=== PATIENT | female | born 1975 | race Caucasian/White ===

== ENCOUNTER 2016-02-12 04:40 | Emergency (ER) | payer OTHER, SELFPAY ==
[~2016-02-12 04:40] MED LIST: GABA300C3 PO; PERC5TAB6 PO; TYLE325T5 PO
[2016-02-12] MEDS ORDERED: KETOROLAC 30 MG/ML VIAL (J1885) As Ordered ONE (05:24)
[2016-02-12] MEDS ORDERED: ISOVUE-370 76% 100ML VIAL (Q9967) As Ordered ONE (05:27)
[2016-02-12 05:55] LABS: ANION GAP 9 MEQ/L (8-16); BLOOD UREA NITROGEN 10 MG/DL (7-18); CALCIUM LEVEL 8.6 MG/DL (8.5-10.1); CARBON DIOXIDE LEVEL 25 MEQ/L (21-32); CHLORIDE LEVEL 109 MEQ/L (98-107); CREATININE FOR GFR 0.84 MG/DL (0.55-1.02); GLOMERULAR FILTRATION RATE > 60.0 (>60); GLUCOSE, FASTING 116 MG/DL (70-105); POTASSIUM SERUM 3.7 MEQ/L (3.5-5.1); SODIUM LEVEL 143 MEQ/L (136-145)
--- NOTE | 2016-02-12 06:30 | REPUSA ---
HISTORY: Right facial swelling. COMPARISON: Not provided. TECHNIQUE: Multiple thin section helically-acquired axially-displayed and helically acquired coronall y displayed computed tomographic images of the face are obtained from the mandible through the fronta l sinuses, with images obtained at soft tissue and bone window. 2D reformatted images were performed. FINDINGS: Right perimandibular soft tissue edema and swelling. Right premaxillary soft tissue edema and stranding. Associated phlegmonous soft tissue changes. Right preseptal soft tissue edema. Normal bony mineralization. No fractures. Normal orbits. Normal, clear paranasal sinuses. Normal oral and nasal cavities. Normal infratemporal fossa and deep parapharyngeal spaces with normal muscles of mastication. Normal parotid and submandibular glands. IMPRESSION: Right facial paralysis with phlegmonous reaction. No drainable abscess formation. Right preseptal cellulitis. No post septal extension. Thank you for your kind referral of this patient
[2016-02-12] MEDS ORDERED: CLINDAMYCIN INJ 900MG/6ML VIAL As Ordered ONE (06:49)
[2016-02-12 06:57] LABS: BASO # 0.1 K/mm3 (0.0-0.2); EOS # 0.3 K/mm3 (0.0-0.50); EOS % 2.7 % (0.0-3.0); LARGE UNSTAINED CELL # 0.1 K/mm3 (0.0-0.4); LARGE UNSTAINED CELL % 1.1 % (0.0-4.0); LYMPH # 2.7 K/mm3 (1.5-4.5); LYMPH % 21.1 % (24.0-44.0); MEAN CORPUSCULAR HEMOGLOBIN 27.5 pg (27.0-33.0); MEAN CORPUSCULAR HGB CONC 31.8 g/dl (32.0-36.5); MEAN CORPUSCULAR VOLUME 86.5 fl (80.0-96.0); MONO # 0.6 K/mm3 (0.0-0.8); NEUTROPHILS # 8.3 K/mm3 (1.8-7.7); PLATELET COUNT, AUTOMATED 315 k/mm3 (150-450); RED CELL DISTRIBUTION WIDTH 14.9 % (11.5-14.5)
--- NOTE | 2016-02-12 07:56 | EDDOCDS ---
Physician Documentation [facility] Name: Amy Magallanes Age: 41 yrs Sex: Female : 1975 Arrival Date: 02/12/2016 Time: 04:40 Bed 17 Private MD: Disposition: 02/11 07:22 Critical Care: Critical care not applicable. pc Disposition: 02/12/16 07:26 Discharged to Home/Self Care. Impression: Cellulitis and acute lymphangitis of face, Cellulitis of right orbit - pre-septal. - Condition is Stable. - Discharge Instructions: Cellulitis, Periorbital Cellulitis. - Prescriptions for Percocet 5- 325 mg Oral Tablet - take 1 tablet by ORAL route every 6 hours As needed MDD: 4 tabs; 20 tablet. - Medication Reconciliation, Local Pharmacy Hours form. - Follow up: Emergency Department; When: at 7pm tonight for repeat antibiotics. - Problem is new. - Symptoms have improved. HPI: 05:10 This 41 yrs old Female presents to ER via Walkin/Carried/Asstd with pc complaints of Facial Swelling. 05:10 The history is obtained from the patient. She developed right facial swelling pc yesterday, in her right cheek , near the right nasal fold. She denies any trauma, denies acne or lesions. The swelling increased throughout the day and she started to have pain and swelling in her lymph nodes along the right mandible. This morning her right check is swollen to and below the right mandible. The only area of pain is in her right upper maxillary area. She denies any visual changes, dental pain, nasal congestion of pain. At their worst, the symptoms were moderate. In the emergency department, the symptoms are moderate. The patient has not experienced similar symptoms in the past. The patient has not recently seen a physician. Historical: - Allergies: PENICILLINS (Hives, Swelling); - Home Meds: 1. none - PMHx: none; - PSHx: Tubal ligation (June 21, 2013); Neck surgery (2015) Dr. Contreras; Carpal Tunnel Repair- Right; - The history from nurses notes was reviewed: and I agree with what is documented. - Social history: Smoking status: Patient uses tobacco products, current every day smoker. No barriers to communication noted, The patient speaks fluent Zambian, Speaks appropriately for age, Preferred Language: Zambian. - : The pt / caregiver states he / she is not on anticoagulants. Home medication list is obtained from the patient. - Hospitalizations: : No recent hospitalization is reported. - Exposure Risk Screening:: None identified. - Immunization history:: All immunizations up-to-date. - Family history: Not pertinent. - Social history:: the patient smokes cigarettes 1ppd the patient drinks alcohol. 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 pc Exam: 05:10 General Appearance: no acute distress, alert. pc 05:10 EENT: gross swelling of the right side of her face, from the right maxilla at the nasal fold, extending down towards the right mandible . There is minimal erythema. There is no nasal mucosal abnormalities. There are no dental abnormalities. There swollen tender lymph nodes along the right submandibular chain. The oropharynx is normal. 05:10 Neck: The exam reveals no acute abnormalities. ROM is normal and painless. No nuchal rigidity is noted.. 05:10 Respiratory: no respiratory distress, normal breath sounds. Vital Signs: 04:44 BP 126 / 70; Pulse 91; Resp 18; Temp 99.6(TE); Pulse Ox 100% on R/A; Weight 63.5 kg / lf1 139.99 lbs (R); Height 5 ft. 7 in. (170.18 cm) (R); Pain 8/10; 05:41 Pain 3/10; mike 06:40 BP 109 / 78; Pulse 82; Resp 18 S; Temp 97.7(O); Pulse Ox 99% on R/A; Pain 0/10; jp4 07:45 BP 107 / 70; Pulse 69; Resp 18; Temp 99.2(O); Pulse Ox 100% on R/A; Pain 2/10; ct3 04:44 Body Mass Index 21.93 (63.50 kg, 170.18 cm) lf1 MDM: 05:09 IV Saline Lock ordered. pc 05:09 -Blood Culture (Adults Only), peripheral from different site, or from device/port/PICC pc etc. if present ordered. 05:10 CBC with Diff Ordered. EDMS 05:10 MED Profile Ordered. EDMS 05:10 -Blood Culture Ordered. EDMS 05:17 Differential Diagnosis: facial cellulitis with reactive lymphadenopathy, r/o maxillary pc sinusitis with bony erosion. Plan: labs, imaging. 05:18 -Blood Culture (Adults Only), peripheral from different site, or from device/port/PICC ml3 etc. if present complete. 05:19 BLOOD CULTURES Ordered. EDMS 05:23 ketorolac 30 mg IVP once ordered. pc 05:24 CT Maxillofacial with contrast Ordered. EDMS 06:43 Clindamycin 900 mg IVPB once over 30 mins; dilute in 50mL of NS or D5W ordered. pc 06:43 MED Profile Reviewed. pc 07:22 CBC with Diff Reviewed. pc 07:22 CT Maxillofacial with contrast Reviewed. pc 07:22 Data reviewed: old medical records, vital signs, nurses notes, lab test results, all pc radiology studies and available results. Test interpretation: LAB - all labs as ordered have been reviewed, interpreted and considered in the overall management of the clinical presentation; interpreted by Radiologist and personally reviewed, Maxillo-Facial CT; right pre-septal cellulitis/facial cellulitis. The patient has been re-examined and re-evaluated. The patient's symptoms have markedly improved after treatment. Disposition: The historical points, examination findings, and any diagnostic results supporting the provided diagnosis, were discussed with the patient or legal guardian. The need for outpatient follow up with the provider listed on their discharge instructions was discussed. They were encouraged to return to [facility], or the nearest ED, if symptoms worsen/persist, or for any other questions/concerns. Administered Medications: 05:28 Drug: ketorolac 30 mg [ketorolac 30 mg/mL (1 mL) injection solution (1 mL)] Route: IVP; mike Site: left forearm; 05:41 Follow up: Pain 04/17 Adult mike 06:40 Drug: Clindamycin 900 mg [clindamycin 150 mg/mL injection solution] Route: IVPB; cf2 Infused Over: 30 mins; Site: left antecubital; Signatures: Dispatcher [employer] EDMS Chavo Diallo MD MD pc Lopresti, Mary-Elizabeth, Planning Management It Specialist Unit ml3 Marivel Garcia RN RN kr3 Tanya Yen RN RN lf1 Morelia Abbott RN, cas, Christina RN cf2 MTDD
--- NOTE | 2016-02-12 07:56 | EDDOCDS ---
Nurse's Notes [facility] Name: Amy Magallanes Age: 41 yrs Sex: Female : 1975 Arrival Date: 02/12/2016 Time: 04:40 Bed 17 Private MD: Diagnosis: Cellulitis and acute lymphangitis of face;Cellulitis of right [id number] Presentation: 02/11 04:44 Presenting complaint: Patient states: Pt states she woke up yesterday morning with lf1 minor swelling to right cheek, when she woke up this morning pt. reports that swelling has increased and spread up toward her eye and down into her neck. Denies dental pain, reports pain in cheek, neck and eye that is currently 8/10. Adult Sepsis Screening: The patient does not have new or worsening altered mentation. Patient's respiratory rate is less than 22. Systolic blood pressure is greater than 100. Patient has a qSOFA score of 0- Negative Sepsis Screen. Suicide/Homicide risk assessment- the patient denies having any suicidal and/or homicidal ideations and does not present with any other emotional, behavioral or mental health complaints. 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 Transition of care: patient was not received from another setting of care. 04:44 Acuity: MISSAEL Level 3 lf1 04:44 Method Of Arrival: Walkin/Carried/Asstd lf1 Triage Assessment: 04:51 General: Appears uncomfortable, Behavior is cooperative. Pain: Location: right eye, lf1 right cheek and right jaw Pain currently is 8 out of 10 on a pain scale. HIV screening NA for this visit. Neurological: Level of Consciousness is awake, alert, Oriented to person, place, time. EENT: Reports nasal congestion Denies difficulty swallowing. Cardiovascular: Chest pain is denied. Respiratory: Respiratory effort is even, unlabored, Denies shortness of breath. GI: Denies diarrhea, nausea, vomiting. : Denies burning with urination, urinary frequency. Derm: Swollen area noted on right eye, right cheek and right jaw. 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 none - PMHx: none; - PSHx: Tubal ligation (June 21, 2013); Neck surgery (2016) Dr. Contreras; Carpal Tunnel Repair- Right; - The history from nurses notes was reviewed: and I agree with what is documented. - Social history: Smoking status: Patient uses tobacco products, current every day smoker. No barriers to communication noted, The patient speaks fluent Honduran, Speaks appropriately for age, Preferred Language: Honduran. - : The pt / caregiver states he / she is not on anticoagulants. Home medication list is obtained from the patient. - Hospitalizations: : No recent hospitalization is reported. - Exposure Risk Screening:: None identified. - Immunization history:: All immunizations up-to-date. - Family history: Not pertinent. - Social history:: the patient smokes cigarettes 1ppd the patient drinks alcohol. Screenin:53 Screening information is obtained from the patient. Fall risk: No risks identified. lf1 Assistance ADL's: requires no assistance with activities of daily living. Abuse/DV Screen: The patient / caregiver reports he/she is: not in a situation that causes fear, pain or injury. Nutritional screening: No deficits noted. Advance Directives: Currently, there is no health care proxy. There is no active DNR order. home support is adequate. Assessment: 05:03 General: See Triage note. Pt complains of pressure to right side of face. . mike Neurological: No deficits noted. EENT: No deficits noted. Cardiovascular: No deficits noted. Respiratory: No deficits noted. GI: No deficits noted. Derm: Skin is pink, warm & dry. 06:00 Reassessment: Patient appears in no apparent distress at this time. Patient states mike feeling better. Neurological: No deficits noted. Cardiovascular: No deficits noted. Respiratory: No deficits noted. Derm: Skin is pink, warm & dry. 07:55 Reassessment: Patient states feeling better. Pain: Location: right cheek Pain currently kr3 is 3 out of 10 on a pain scale. Respiratory: Respiratory effort is even, unlabored. Derm: Swollen area noted on right cheek. Vital Signs: 04:44 BP 126 / 70; Pulse 91; Resp 18; Temp 99.6(TE); Pulse Ox 100% on R/A; Weight 63.5 kg lf1 (R); Height 5 ft. 7 in. (170.18 cm) (R); Pain 8/10; 05:41 Pain 3/10; mike 06:40 BP 109 / 78; Pulse 82; Resp 18 S; Temp 97.7(O); Pulse Ox 99% on R/A; Pain 0/10; jp4 07:45 BP 107 / 70; Pulse 69; Resp 18; Temp 99.2(O); Pulse Ox 100% on R/A; Pain 2/10; ct3 04:44 Body Mass Index 21.93 (63.50 kg, 170.18 cm) 1 Vitals: 04:44 Log In Time: February 12, 2016 at 04:41. 1 ED Course: 04:41 Patient visited by Tanya Oseguera. lja 04:41 Patient moved to Waiting lja 04:44 Patient moved to Triage 1 lf 04:48 Triage Initiated [facility] 04:55 Morelia Abbott RN is Primary Nurse. lf1 04:55 Patient moved to 17 [facility] 05:07 Chavo Diallo MD is Attending Physician. pc 05:07 Patient visited by Chavo Diallo MD. pc 05:28 BLOOD CULTURES Sent. mike 05:28 MED Profile Sent. mike 05:28 CBC with Diff Sent. mike 05:40 Patient visited by Morelia Abbott RN. mike 06:40 Patient visited by Elisa Paz RN. cf2 06:42 Patient visited by Pipe Serrano. jp4 07:03 Attending Physician role handed off by Chavo Diallo MD sd1 07:03 Mulu Desai MD is Attending Physician. sd1 07:05 CT Maxillofacial with contrast Returned. EDMS 07:09 Primary Nurse role handed off by Morelia Abbott RN mike 07:15 Patient visited by Paul Qiu PCA. jlf 07:29 Attending Physician role handed off by Mulu Desai MD pc 07:29 Chavo Diallo MD is Attending Physician. pc 07:46 Patient visited by Claudine Jernigan PCA. ct3 07:55 The patient / caregiver is instructed regarding the plan of care and ED course. Patient kr3 has correct armband on for positive identification. 07:55 Inserted saline lock: 20 gauge in left forearm. No procedures done that require kr3 assistance. Administered Medications: 05:28 Drug: ketorolac 30 mg [ketorolac 30 mg/mL (1 mL) injection solution (1 mL)] Route: IVP; mike Site: left forearm; 05:41 Follow up: Pain 04/17 Adult mike 06:40 Drug: Clindamycin 900 mg [clindamycin 150 mg/mL injection solution] Route: IVPB; cf2 Infused Over: 30 mins; Site: left antecubital; Order Results: Lab Order: CBC with Diff; SPEC'M 02/12/16 05:23 Test: WHITE BLOOD COUNT; Value: 12.0; Range: 4.0-10.0; Abnormal: Above high normal; Units: K/mm3; Status: F Test: RED BLOOD COUNT; Value: 4.63; Range: 4.00-5.40; Units: M/mm3; Status: F Test: HEMOGLOBIN; Value: 12.7; Range: 12.0-16.0; Units: g/dl; Status: F Test: HEMATOCRIT; Value: 40.1; Range: 36.0-47.0; Units: %; Status: F Test: MEAN CORPUSCULAR VOLUME; Value: 86.5; Range: 80.0-96.0; Units: fl; Status: F Test: MEAN CORPUSCULAR HEMOGLOBIN; Value: 27.5; Range: 27.0-33.0; Units: pg; Status: F Test: MEAN CORPUSCULAR HGB CONC; Value: 31.8; Range: 32.0-36.5; Abnormal: Below low normal; Units: g/dl; Status: F Test: RED CELL DISTRIBUTION WIDTH; Value: 14.9; Range: 11.5-14.5; Abnormal: Above high normal; Units: %; Status: F Test: PLATELET COUNT, AUTOMATED; Value: 315; Range: 150-450; Units: k/mm3; Status: F Test: NEUTROPHILS %; Value: 69.0; Range: 36.0-66.0; Abnormal: Above high normal; Units: %; Status: F Test: LYMPH %; Value: 21.1; Range: 24.0-44.0; Abnormal: Below low normal; Units: %; Status: F Test: MONO %; Value: 5.0; Range: 0.0-5.0; Units: %; Status: F Test: EOS %; Value: 2.7; Range: 0.0-3.0; Units: %; Status: F Test: BASO %; Value: 1.0; Range: 0.0-1.0; Units: %; Status: F Test: LARGE UNSTAINED CELL %; Value: 1.1; Range: 0.0-4.0; Units: %; Status: F Test: NEUTROPHILS #; Value: 8.3; Range: 1.8-7.7; Abnormal: Above high normal; Units: K/mm3; Status: F Test: LYMPH #; Value: 2.7; Range: 1.5-4.5; Units: K/mm3; Status: F Test: MONO #; Value: 0.6; Range: 0.0-0.8; Units: K/mm3; Status: F Test: EOS #; Value: 0.3; Range: 0.0-0.50; Units: K/mm3; Status: F Test: BASO #; Value: 0.1; Range: 0.0-0.2; Units: K/mm3; Status: F Test: LARGE UNSTAINED CELL #; Value: 0.1; Range: 0.0-0.4; Units: K/mm3; Status: F Lab Order: [facility] Profile; SPEC'M 02/12/16 05:23 Test: GLUCOSE, FASTING; Value: 116; Range: 70-105; Abnormal: Above high normal; Units: MG/DL; Status: F Test: BLOOD UREA NITROGEN; Value: 10; Range: 7-18; Units: MG/DL; Status: F Test: CREATININE FOR GFR; Value: 0.84; Range: 0.55-1.02; Units: MG/DL; Status: F Test: GLOMERULAR FILTRATION RATE; Value: > 60.0; Range: >60; Status: F Test: SODIUM LEVEL; Value: 143; Range: 136-145; Units: MEQ/L; Status: F Test: POTASSIUM SERUM; Value: 3.7; Range: 3.5-5.1; Units: MEQ/L; Status: F Test: CHLORIDE LEVEL; Value: 109; Range: 98-107; Abnormal: Above high normal; Units: MEQ/L; Status: F Test: CARBON DIOXIDE LEVEL; Value: 25; Range: 21-32; Units: MEQ/L; Status: F Test: ANION GAP; Value: 9; Range: 8-16; Units: MEQ/L; Status: F Test: CALCIUM LEVEL; Value: 8.6; Range: 8.5-10.1; Units: MG/DL; Status: F Test Note: ; Units are mL/min/1.73 m2 Chronic Kidney Disease Staging per NKF: Stage I & II GFR >=60 Normal to Mildly Decreased Stage III GFR 30-59 Moderately Decreased Stage IV GFR 15-29 Severely Decreased Stage V GFR <15 Very Little GFR Left ESRD GFR <15 on BUTCHER MEAT Radiology Order: CT Maxillofacial with contrast Test: CT Maxillofacial with contrast REASON FOR EXAMINATION: r/o abscess; ; HISTORY: Right facial swelling.; COMPARISON: Not provided.; TECHNIQUE: Multiple thin section helically-acquired axially-displayed and helically acquired coronall; y displayed computed tomographic images of the face are obtained from the mandible through the fronta; l sinuses, with images obtained at soft tissue and bone window. 2D reformatted images were performed.; ; FINDINGS:; Right perimandibular soft tissue edema and swelling.; Right premaxillary soft tissue edema and stranding.; Associated phlegmonous soft tissue changes.; Right preseptal soft tissue edema.; Normal bony mineralization. No fractures.; Normal orbits.; Normal, clear paranasal sinuses.; Normal oral and nasal cavities.; Normal infratemporal fossa and deep parapharyngeal spaces with normal muscles of mastication. Normal; parotid and submandibular glands.; IMPRESSION:; Right facial paralysis with phlegmonous reaction.; No drainable abscess formation.; Right preseptal cellulitis. No post septal extension.; Thank you for your kind referral of this patient; ; Outcome: 07:26 Discharge ordered by Provider. 07:55 Discharge Assessment: patient administered narcotics - no. The following High Risk kr3 Discharge criteria are identified: None. Discharged to home ambulatory. Condition: stable. Discharge instructions given to patient, Instructed on discharge instructions, follow up and referral plans. medication usage, no driving heavy equipment, no drinking with medication, Demonstrated understanding of instructions, medications, Pt was receptive of discharge instructions/ teaching. Prescriptions given X 1. CT Study completed. Property sent home with patient. 07:56 Patient left the ED. kr3 Signatures: Dispatcher [employer] EDMS Chavo Diallo MD MD pc Delaney-Rowland, Sarah, MD MD sd1 Morelia Abbott,RN RN mike Marivel Garcia RN RN kr3 Tanya Yen RN RN lf1 Delon, Claudine, TUMBLERS SUPERVISOR TUMBLERS SUPERVISOR ct3 Paul Qiu, TUMBLERS SUPERVISOR TUMBLERS SUPERVISOR jlf Zach, Pipe jp4 Andrew, Elisa Mueller,RN RN cf2 MTDD
--- NOTE | 2016-02-14 08:57 | EDDOCDS ---
Physician Documentation Name: Amy Magallanes Age: 41 yrs Sex: Female : 1975 Arrival Date: 02/12/2016 Time: 04:40 Bed 17 Private MD: Disposition: 02/11 07:22 Critical Care: Critical care not applicable. pc Disposition: 02/12/16 07:26 Discharged to Home/Self Care. Impression: Cellulitis and acute lymphangitis of face, Cellulitis of right orbit - pre-septal. - Condition is Stable. - Discharge Instructions: Cellulitis, Periorbital Cellulitis. - Prescriptions for Percocet 5- 325 mg Oral Tablet - take 1 tablet by ORAL route every 6 hours As needed MDD: 4 tabs; 20 tablet. - Medication Reconciliation, Local Pharmacy Hours form. - Follow up: Emergency Department; When: at 7pm tonight for repeat antibiotics. - Problem is new. - Symptoms have improved. HPI: 05:10 This 41 yrs old Female presents to ER via Walkin/Carried/Asstd with pc complaints of Facial Swelling. 05:10 The history is obtained from the patient. She developed right facial swelling pc yesterday, in her right cheek , near the right nasal fold. She denies any trauma, denies acne or lesions. The swelling increased throughout the day and she started to have pain and swelling in her lymph nodes along the right mandible. This morning her right check is swollen to and below the right mandible. The only area of pain is in her right upper maxillary area. She denies any visual changes, dental pain, nasal congestion of pain. At their worst, the symptoms were moderate. In the emergency department, the symptoms are moderate. The patient has not experienced similar symptoms in the past. The patient has not recently seen a physician. Historical: - Allergies: PENICILLINS (Hives, Swelling); - Home Meds: 1. none - PMHx: none; - PSHx: Tubal ligation (June 21, 2013); Neck surgery (2015) Dr. Contreras; Carpal Tunnel Repair- Right; - The history from nurses notes was reviewed: and I agree with what is documented. - Social history: Smoking status: Patient uses tobacco products, current every day smoker. No barriers to communication noted, The patient speaks fluent Cymraes, Speaks appropriately for age, Preferred Language: Cymraes. - : The pt / caregiver states he / she is not on anticoagulants. Home medication list is obtained from the patient. - Hospitalizations: : No recent hospitalization is reported. - Exposure Risk Screening:: None identified. - Immunization history:: All immunizations up-to-date. - Family history: Not pertinent. - Social history:: the patient smokes cigarettes 1ppd the patient drinks alcohol. 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 pc Exam: 05:10 General Appearance: no acute distress, alert. pc 05:10 EENT: gross swelling of the right side of her face, from the right maxilla at the nasal fold, extending down towards the right mandible . There is minimal erythema. There is no nasal mucosal abnormalities. There are no dental abnormalities. There swollen tender lymph nodes along the right submandibular chain. The oropharynx is normal. 05:10 Neck: The exam reveals no acute abnormalities. ROM is normal and painless. No nuchal rigidity is noted.. 05:10 Respiratory: no respiratory distress, normal breath sounds. Vital Signs: 04:44 BP 126 / 70; Pulse 91; Resp 18; Temp 99.6(TE); Pulse Ox 100% on R/A; Weight 63.5 kg / lf1 139.99 lbs (R); Height 5 ft. 7 in. (170.18 cm) (R); Pain 8/10; 05:41 Pain 3/10; mike 06:40 BP 109 / 78; Pulse 82; Resp 18 S; Temp 97.7(O); Pulse Ox 99% on R/A; Pain 0/10; jp4 07:45 BP 107 / 70; Pulse 69; Resp 18; Temp 99.2(O); Pulse Ox 100% on R/A; Pain 2/10; ct3 04:44 Body Mass Index 21.93 (63.50 kg, 170.18 cm) lf1 MDM: 05:09 IV Saline Lock ordered. pc 05:09 -Blood Culture (Adults Only), peripheral from different site, or from device/port/PICC pc etc. if present ordered. 05:10 CBC with Diff Ordered. EDMS 05:10 MED Profile Ordered. EDMS 05:10 -Blood Culture Ordered. EDMS 05:17 Differential Diagnosis: facial cellulitis with reactive lymphadenopathy, r/o maxillary pc sinusitis with bony erosion. Plan: labs, imaging. 05:18 -Blood Culture (Adults Only), peripheral from different site, or from device/port/PICC ml3 etc. if present complete. 05:19 BLOOD CULTURES Ordered. EDMS 05:23 ketorolac 30 mg IVP once ordered. pc 05:24 CT Maxillofacial with contrast Ordered. EDMS 06:43 Clindamycin 900 mg IVPB once over 30 mins; dilute in 50mL of NS or D5W ordered. pc 06:43 MED Profile Reviewed. pc 07:22 CBC with Diff Reviewed. pc 07:22 CT Maxillofacial with contrast Reviewed. pc 07:22 Data reviewed: old medical records, vital signs, nurses notes, lab test results, all pc radiology studies and available results. Test interpretation: LAB - all labs as ordered have been reviewed, interpreted and considered in the overall management of the clinical presentation; interpreted by Radiologist and personally reviewed, Maxillo-Facial CT; right pre-septal cellulitis/facial cellulitis. The patient has been re-examined and re-evaluated. The patient's symptoms have markedly improved after treatment. Disposition: The historical points, examination findings, and any diagnostic results supporting the provided diagnosis, were discussed with the patient or legal guardian. The need for outpatient follow up with the provider listed on their discharge instructions was discussed. They were encouraged to return to [facility], or the nearest ED, if symptoms worsen/persist, or for any other questions/concerns. 08:13 [facility] Payment Agreement was scanned into [employer] and attached to record. mm15 08:13 Financial registration complete. mm15 14:33 Radiology Report was scanned into [employer] and attached to record. gb Administered Medications: 05:28 Drug: ketorolac 30 mg [ketorolac 30 mg/mL (1 mL) injection solution (1 mL)] Route: IVP; mike Site: left forearm; 05:41 Follow up: Pain 04/17 Adult mike 06:40 Drug: Clindamycin 900 mg [clindamycin 150 mg/mL injection solution] Route: IVPB; cf2 Infused Over: 30 mins; Site: left antecubital; Signatures: Dispatcher [employer] EDMS Chavo Diallo MD MD pc Barnhardt, Gloria, Gigi Stewart, [employer] ml3 Marivel Garcia RN RN kr3 Tanya Yen RN RN lf1 Kiana Mallory mm15 Morelia Abbott RN, cas, Christina RN cf2 The chart was reviewed and I authenticate all verbal orders and agree with the evaluation and treatment provided.Attachments: 08:13 [facility] Payment Agreement mm15 Chart Complete MTDD
--- NOTE | 2016-02-14 08:58 | EDDOCDS ---
Physician Documentation [facility] Name: Aym Magallanes Age: 41 yrs Sex: Female : 1975 Arrival Date: 02/12/2016 Time: 04:40 Bed 17 Private MD: Disposition: 02/11 07:22 Critical Care: Critical care not applicable. pc Disposition: 02/12/16 07:26 Discharged to Home/Self Care. Impression: Cellulitis and acute lymphangitis of face, Cellulitis of right orbit - pre-septal. - Condition is Stable. - Discharge Instructions: Cellulitis, Periorbital Cellulitis. - Prescriptions for Percocet 5- 325 mg Oral Tablet - take 1 tablet by ORAL route every 6 hours As needed MDD: 4 tabs; 20 tablet. - Medication Reconciliation, Local Pharmacy Hours form. - Follow up: Emergency Department; When: at 7pm tonight for repeat antibiotics. - Problem is new. - Symptoms have improved. HPI: 05:10 This 41 yrs old Female presents to ER via Walkin/Carried/Asstd with pc complaints of Facial Swelling. 05:10 The history is obtained from the patient. She developed right facial swelling pc yesterday, in her right cheek , near the right nasal fold. She denies any trauma, denies acne or lesions. The swelling increased throughout the day and she started to have pain and swelling in her lymph nodes along the right mandible. This morning her right check is swollen to and below the right mandible. The only area of pain is in her right upper maxillary area. She denies any visual changes, dental pain, nasal congestion of pain. At their worst, the symptoms were moderate. In the emergency department, the symptoms are moderate. The patient has not experienced similar symptoms in the past. The patient has not recently seen a physician. Historical: - Allergies: PENICILLINS (Hives, Swelling); - Home Meds: 1. none - PMHx: none; - PSHx: Tubal ligation (June 21, 2013); Neck surgery (2015) Dr. Contreras; Carpal Tunnel Repair- Right; - The history from nurses notes was reviewed: and I agree with what is documented. - Social history: Smoking status: Patient uses tobacco products, current every day smoker. No barriers to communication noted, The patient speaks fluent Equ[place]inean, Speaks appropriately for age, Preferred Language: [place]an. - : The pt / caregiver states he / she is not on anticoagulants. Home medication list is obtained from the patient. - Hospitalizations: : No recent hospitalization is reported. - Exposure Risk Screening:: None identified. - Immunization history:: All immunizations up-to-date. - Family history: Not pertinent. - Social history:: the patient smokes cigarettes 1ppd the patient drinks alcohol. 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 pc Exam: 05:10 General Appearance: no acute distress, alert. pc 05:10 EENT: gross swelling of the right side of her face, from the right maxilla at the nasal fold, extending down towards the right mandible . There is minimal erythema. There is no nasal mucosal abnormalities. There are no dental abnormalities. There swollen tender lymph nodes along the right submandibular chain. The oropharynx is normal. 05:10 Neck: The exam reveals no acute abnormalities. ROM is normal and painless. No nuchal rigidity is noted.. 05:10 Respiratory: no respiratory distress, normal breath sounds. Vital Signs: 04:44 BP 126 / 70; Pulse 91; Resp 18; Temp 99.6(TE); Pulse Ox 100% on R/A; Weight 63.5 kg / lf1 139.99 lbs (R); Height 5 ft. 7 in. (170.18 cm) (R); Pain 8/10; 05:41 Pain 3/10; mike 06:40 BP 109 / 78; Pulse 82; Resp 18 S; Temp 97.7(O); Pulse Ox 99% on R/A; Pain 0/10; jp4 07:45 BP 107 / 70; Pulse 69; Resp 18; Temp 99.2(O); Pulse Ox 100% on R/A; Pain 2/10; ct3 04:44 Body Mass Index 21.93 (63.50 kg, 170.18 cm) lf1 MDM: 05:09 IV Saline Lock ordered. pc 05:09 -Blood Culture (Adults Only), peripheral from different site, or from device/port/PICC pc etc. if present ordered. 05:10 CBC with Diff Ordered. EDMS 05:10 MED Profile Ordered. EDMS 05:10 -Blood Culture Ordered. EDMS 05:17 Differential Diagnosis: facial cellulitis with reactive lymphadenopathy, r/o maxillary pc sinusitis with bony erosion. Plan: labs, imaging. 05:18 -Blood Culture (Adults Only), peripheral from different site, or from device/port/PICC ml3 etc. if present complete. 05:19 BLOOD CULTURES Ordered. EDMS 05:23 ketorolac 30 mg IVP once ordered. pc 05:24 CT Maxillofacial with contrast Ordered. EDMS 06:43 Clindamycin 900 mg IVPB once over 30 mins; dilute in 50mL of NS or D5W ordered. pc 06:43 MED Profile Reviewed. pc 07:22 CBC with Diff Reviewed. pc 07:22 CT Maxillofacial with contrast Reviewed. pc 07:22 Data reviewed: old medical records, vital signs, nurses notes, lab test results, all pc radiology studies and available results. Test interpretation: LAB - all labs as ordered have been reviewed, interpreted and considered in the overall management of the clinical presentation; interpreted by Radiologist and personally reviewed, Maxillo-Facial CT; right pre-septal cellulitis/facial cellulitis. The patient has been re-examined and re-evaluated. The patient's symptoms have markedly improved after treatment. Disposition: The historical points, examination findings, and any diagnostic results supporting the provided diagnosis, were discussed with the patient or legal guardian. The need for outpatient follow up with the provider listed on their discharge instructions was discussed. They were encouraged to return to [facility], or the nearest ED, if symptoms worsen/persist, or for any other questions/concerns. 08:13 [facility] Payment Agreement was scanned into [employer] and attached to record. mm15 08:13 Financial registration complete. mm15 14:33 Radiology Report was scanned into [employer] and attached to record. gb Administered Medications: 05:28 Drug: ketorolac 30 mg [ketorolac 30 mg/mL (1 mL) injection solution (1 mL)] Route: IVP; mike Site: left forearm; 05:41 Follow up: Pain 04/17 Adult mike 06:40 Drug: Clindamycin 900 mg [clindamycin 150 mg/mL injection solution] Route: IVPB; cf2 Infused Over: 30 mins; Site: left antecubital; Signatures: Dispatcher [employer] EDMS Chavo Diallo MD MD pc Barnhardt, Gloria, Gigi Stewart, Dynamo Tender Unit ml3 Marivel Garcia RN RN kr3 Tanya Yen RN RN lf1 Kiana Mallory mm15 Morelia Abbott RN, cas, Christina RN cf2 The chart was reviewed and I authenticate all verbal orders and agree with the evaluation and treatment provided.Attachments: 08:13 [facility] Payment Agreement mm15 Chart Complete MTDD
--- NOTE | 2016-02-14 08:58 | EDDOCDS ---
Nurse's Notes [facility] Name: Amy Magallanes Age: 41 yrs Sex: Female : 1975 Arrival Date: 02/12/2016 Time: 04:40 Bed 17 Private MD: Diagnosis: Cellulitis and acute lymphangitis of face;Cellulitis of right [id number] Presentation: 02/11 04:44 Presenting complaint: Patient states: Pt states she woke up yesterday morning with lf1 minor swelling to right cheek, when she woke up this morning pt. reports that swelling has increased and spread up toward her eye and down into her neck. Denies dental pain, reports pain in cheek, neck and eye that is currently 8/10. Adult Sepsis Screening: The patient does not have new or worsening altered mentation. Patient's respiratory rate is less than 22. Systolic blood pressure is greater than 100. Patient has a qSOFA score of 0- Negative Sepsis Screen. Suicide/Homicide risk assessment- the patient denies having any suicidal and/or homicidal ideations and does not present with any other emotional, behavioral or mental health complaints. 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 Transition of care: patient was not received from another setting of care. 04:44 Acuity: MISSAEL Level 3 lf1 04:44 Method Of Arrival: Walkin/Carried/Asstd lf1 Triage Assessment: 04:51 General: Appears uncomfortable, Behavior is cooperative. Pain: Location: right eye, lf1 right cheek and right jaw Pain currently is 8 out of 10 on a pain scale. HIV screening NA for this visit. Neurological: Level of Consciousness is awake, alert, Oriented to person, place, time. EENT: Reports nasal congestion Denies difficulty swallowing. Cardiovascular: Chest pain is denied. Respiratory: Respiratory effort is even, unlabored, Denies shortness of breath. GI: Denies diarrhea, nausea, vomiting. : Denies burning with urination, urinary frequency. Derm: Swollen area noted on right eye, right cheek and right jaw. 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 none - PMHx: none; - PSHx: Tubal ligation (June 21, 2013); Neck surgery (2016) Dr. Contreras; Carpal Tunnel Repair- Right; - The history from nurses notes was reviewed: and I agree with what is documented. - Social history: Smoking status: Patient uses tobacco products, current every day smoker. No barriers to communication noted, The patient speaks fluent Azerbaijani, Speaks appropriately for age, Preferred Language: Azerbaijani. - : The pt / caregiver states he / she is not on anticoagulants. Home medication list is obtained from the patient. - Hospitalizations: : No recent hospitalization is reported. - Exposure Risk Screening:: None identified. - Immunization history:: All immunizations up-to-date. - Family history: Not pertinent. - Social history:: the patient smokes cigarettes 1ppd the patient drinks alcohol. Screenin:53 Screening information is obtained from the patient. Fall risk: No risks identified. lf1 Assistance ADL's: requires no assistance with activities of daily living. Abuse/DV Screen: The patient / caregiver reports he/she is: not in a situation that causes fear, pain or injury. Nutritional screening: No deficits noted. Advance Directives: Currently, there is no health care proxy. There is no active DNR order. home support is adequate. Assessment: 05:03 General: See Triage note. Pt complains of pressure to right side of face. . mike Neurological: No deficits noted. EENT: No deficits noted. Cardiovascular: No deficits noted. Respiratory: No deficits noted. GI: No deficits noted. Derm: Skin is pink, warm & dry. 06:00 Reassessment: Patient appears in no apparent distress at this time. Patient states mike feeling better. Neurological: No deficits noted. Cardiovascular: No deficits noted. Respiratory: No deficits noted. Derm: Skin is pink, warm & dry. 07:55 Reassessment: Patient states feeling better. Pain: Location: right cheek Pain currently kr3 is 3 out of 10 on a pain scale. Respiratory: Respiratory effort is even, unlabored. Derm: Swollen area noted on right cheek. Vital Signs: 04:44 BP 126 / 70; Pulse 91; Resp 18; Temp 99.6(TE); Pulse Ox 100% on R/A; Weight 63.5 kg lf1 (R); Height 5 ft. 7 in. (170.18 cm) (R); Pain 8/10; 05:41 Pain 3/10; mike 06:40 BP 109 / 78; Pulse 82; Resp 18 S; Temp 97.7(O); Pulse Ox 99% on R/A; Pain 0/10; jp4 07:45 BP 107 / 70; Pulse 69; Resp 18; Temp 99.2(O); Pulse Ox 100% on R/A; Pain 2/10; ct3 04:44 Body Mass Index 21.93 (63.50 kg, 170.18 cm) 1 Vitals: 04:44 Log In Time: February 12, 2016 at 04:41. 1 ED Course: 04:41 Patient visited by Tanya Oseguera. lja 04:41 Patient moved to Waiting lja 04:44 Patient moved to Triage 1 lf 04:48 Triage Initiated [facility] 04:55 Morelia Abbott RN is Primary Nurse. lf1 04:55 Patient moved to 17 [facility] 05:07 Chavo Diallo MD is Attending Physician. pc 05:07 Patient visited by Chavo Diallo MD. pc 05:28 BLOOD CULTURES Sent. mike 05:28 MED Profile Sent. mike 05:28 CBC with Diff Sent. mike 05:40 Patient visited by Morelia Abbott RN. mike 06:40 Patient visited by Elisa Paz RN. cf2 06:42 Patient visited by Pipe Serrano. jp4 07:03 Attending Physician role handed off by Chavo Diallo MD sd1 07:03 Mulu Desai MD is Attending Physician. sd1 07:05 CT Maxillofacial with contrast Returned. EDMS 07:09 Primary Nurse role handed off by Morelia Abbott RN mike 07:15 Patient visited by Paul Qiu PCA. jlf 07:29 Attending Physician role handed off by Mulu Desai MD pc 07:29 Chavo Diallo MD is Attending Physician. pc 07:46 Patient visited by Claudine Jernigan PCA. ct3 07:55 The patient / caregiver is instructed regarding the plan of care and ED course. Patient kr3 has correct armband on for positive identification. 07:55 Inserted saline lock: 20 gauge in left forearm. No procedures done that require kr3 assistance. 08:13 [facility] Payment Agreement was scanned into [employer]Pad and attached to record. mm15 14:33 Radiology Report was scanned into TimePad and attached to record. gb Administered Medications: 05:28 Drug: ketorolac 30 mg [ketorolac 30 mg/mL (1 mL) injection solution (1 mL)] Route: IVP; mike Site: left forearm; 05:41 Follow up: Pain 04/17 Adult mike 06:40 Drug: Clindamycin 900 mg [clindamycin 150 mg/mL injection solution] Route: IVPB; cf2 Infused Over: 30 mins; Site: left antecubital; Order Results: Lab Order: CBC with Diff; SPEC'M 02/12/16 05:23 Test: WHITE BLOOD COUNT; Value: 12.0; Range: 4.0-10.0; Abnormal: Above high normal; Units: K/mm3; Status: F Test: RED BLOOD COUNT; Value: 4.63; Range: 4.00-5.40; Units: M/mm3; Status: F Test: HEMOGLOBIN; Value: 12.7; Range: 12.0-16.0; Units: g/dl; Status: F Test: HEMATOCRIT; Value: 40.1; Range: 36.0-47.0; Units: %; Status: F Test: MEAN CORPUSCULAR VOLUME; Value: 86.5; Range: 80.0-96.0; Units: fl; Status: F Test: MEAN CORPUSCULAR HEMOGLOBIN; Value: 27.5; Range: 27.0-33.0; Units: pg; Status: F Test: MEAN CORPUSCULAR HGB CONC; Value: 31.8; Range: 32.0-36.5; Abnormal: Below low normal; Units: g/dl; Status: F Test: RED CELL DISTRIBUTION WIDTH; Value: 14.9; Range: 11.5-14.5; Abnormal: Above high normal; Units: %; Status: F Test: PLATELET COUNT, AUTOMATED; Value: 315; Range: 150-450; Units: k/mm3; Status: F Test: NEUTROPHILS %; Value: 69.0; Range: 36.0-66.0; Abnormal: Above high normal; Units: %; Status: F Test: LYMPH %; Value: 21.1; Range: 24.0-44.0; Abnormal: Below low normal; Units: %; Status: F Test: MONO %; Value: 5.0; Range: 0.0-5.0; Units: %; Status: F Test: EOS %; Value: 2.7; Range: 0.0-3.0; Units: %; Status: F Test: BASO %; Value: 1.0; Range: 0.0-1.0; Units: %; Status: F Test: LARGE UNSTAINED CELL %; Value: 1.1; Range: 0.0-4.0; Units: %; Status: F Test: NEUTROPHILS #; Value: 8.3; Range: 1.8-7.7; Abnormal: Above high normal; Units: K/mm3; Status: F Test: LYMPH #; Value: 2.7; Range: 1.5-4.5; Units: K/mm3; Status: F Test: MONO #; Value: 0.6; Range: 0.0-0.8; Units: K/mm3; Status: F Test: EOS #; Value: 0.3; Range: 0.0-0.50; Units: K/mm3; Status: F Test: BASO #; Value: 0.1; Range: 0.0-0.2; Units: K/mm3; Status: F Test: LARGE UNSTAINED CELL #; Value: 0.1; Range: 0.0-0.4; Units: K/mm3; Status: F Lab Order: MED Profile; SPEC'M 02/12/16 05:23 Test: GLUCOSE, FASTING; Value: 116; Range: 70-105; Abnormal: Above high normal; Units: MG/DL; Status: F Test: BLOOD UREA NITROGEN; Value: 10; Range: 7-18; Units: MG/DL; Status: F Test: CREATININE FOR GFR; Value: 0.84; Range: 0.55-1.02; Units: MG/DL; Status: F Test: GLOMERULAR FILTRATION RATE; Value: > 60.0; Range: >60; Status: F Test: SODIUM LEVEL; Value: 143; Range: 136-145; Units: MEQ/L; Status: F Test: POTASSIUM SERUM; Value: 3.7; Range: 3.5-5.1; Units: MEQ/L; Status: F Test: CHLORIDE LEVEL; Value: 109; Range: 98-107; Abnormal: Above high normal; Units: MEQ/L; Status: F Test: CARBON DIOXIDE LEVEL; Value: 25; Range: 21-32; Units: MEQ/L; Status: F Test: ANION GAP; Value: 9; Range: 8-16; Units: MEQ/L; Status: F Test: CALCIUM LEVEL; Value: 8.6; Range: 8.5-10.1; Units: MG/DL; Status: F Test Note: ; Units are mL/min/1.73 m2 Chronic Kidney Disease Staging per NKF: Stage I & II GFR >=60 Normal to Mildly Decreased Stage III GFR 30-59 Moderately Decreased Stage IV GFR 15-29 Severely Decreased Stage V GFR <15 Very Little GFR Left ESRD GFR <15 on PATTERNATOR Lab Order: -Blood Culture; SPEC'M 02/12/16 05:23 Test: BLOOD CULTURE; Value: No growth after 24 hours . All specimens observed; Status: F Test: BLOOD CULTURE; Value: for 5 days. Results final at that time.; Status: F Test: BLOOD CULTURE; Value: No Growth after 48 hours. All Specimens observed; Status: F Test: BLOOD CULTURE; Value: for 7 days. Results final at that time.; Status: F Lab Order: BLOOD CULTURES; SPEC'M 02/12/16 05:23 Test: BLOOD CULTURE; Value: No growth after 24 hours . All specimens observed; Status: F Test: BLOOD CULTURE; Value: for 5 days. Results final at that time.; Status: F Test: BLOOD CULTURE; Value: No Growth after 48 hours. All Specimens observed; Status: F Test: BLOOD CULTURE; Value: for 7 days. Results final at that time.; Status: F Radiology Order: CT Maxillofacial with contrast Test: CT Maxillofacial with contrast REASON FOR EXAMINATION: r/o abscess; ; HISTORY: Right facial swelling.; COMPARISON: Not provided.; TECHNIQUE: Multiple thin section helically-acquired axially-displayed and helically acquired coronall; y displayed computed tomographic images of the face are obtained from the mandible through the fronta; l sinuses, with images obtained at soft tissue and bone window. 2D reformatted images were performed.; ; FINDINGS:; Right perimandibular soft tissue edema and swelling.; Right premaxillary soft tissue edema and stranding.; Associated phlegmonous soft tissue changes.; Right preseptal soft tissue edema.; Normal bony mineralization. No fractures.; Normal orbits.; Normal, clear paranasal sinuses.; Normal oral and nasal cavities.; Normal infratemporal fossa and deep parapharyngeal spaces with normal muscles of mastication. Normal; parotid and submandibular glands.; IMPRESSION:; Right facial paralysis with phlegmonous reaction.; No drainable abscess formation.; Right preseptal cellulitis. No post septal extension.; Thank you for your kind referral of this patient; ; Outcome: 07:26 Discharge ordered by Provider. 07:55 Discharge Assessment: patient administered narcotics - no. The following High Risk kr3 Discharge criteria are identified: None. Discharged to home ambulatory. Condition: stable. Discharge instructions given to patient, Instructed on discharge instructions, follow up and referral plans. medication usage, no driving heavy equipment, no drinking with medication, Demonstrated understanding of instructions, medications, Pt was receptive of discharge instructions/ teaching. Prescriptions given X 1. CT Study completed. Property sent home with patient. 07:56 Patient left the ED. kr3 Signatures: Dispatcher [employer] EDMS Chavo Diallo MD MD pc Delaney-Rowland, Sarah, MD MD sd1 Morelia Abbott,RN RN Nora De Leon, Marivel Craig RN RN kr3 Tanya Yen RN RN lf1 Claudine Jernigan, EMBLEM DRAWER IN EMBLEM DRAWER IN ct3 Kiana Mallory mm15 Paul Qiu, EMBLEM DRAWER IN EMBLEM DRAWER IN jlf Piep Serrano jp4 Tanya Oseguera Christina,LON RN cf2 Chart Complete MTDD
== END 2016-02-12 07:56 | disposition home or self-care (01) ==
LOC: M ED 04:40
DX: L03.211 Cellulitis of face (principal); Z88.0 Allergy status to penicillin; F17.210 Nicotine dependence, cigarettes, uncomplicated
CPT/HCPCS: 36415; 70487; 80048; 85025; 87040; 99284; J1885; Q9967

== ENCOUNTER 2016-02-12 18:02 | Emergency (ER) | payer SELFPAY ==
[2016-02-12] MEDS ORDERED: CLINDAMYCIN INJ 900MG/6ML VIAL As Ordered ONE (19:54)
--- NOTE | 2016-02-12 20:37 | EDDOCDS ---
Nurse's Notes [facility] Name: Amy Magallanes Age: 41 yrs Sex: Female : 1975 Arrival Date: 02/12/2016 Time: 18:02 Bed I2 / M2 Private MD: NO PRIMARY PHYSICIAN, . Diagnosis: Cellulitis of face-right cheek Presentation: 02/11 18:05 Presenting complaint: Patient states: here for recheck with IV antibiotics. states was ead seen here this morning for right side facial swelling and given IV antibiotics. Was instructed to come back this afternoon. Adult Sepsis Screening: The patient does not have new or worsening altered mentation. Patient's respiratory rate is less than 22. Systolic blood pressure is greater than 100. Patient has a qSOFA score of 0- Negative Sepsis Screen. Suicide/Homicide risk assessment- the patient denies having any suicidal and/or homicidal ideations and does not present with any other emotional, behavioral or mental health complaints. 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 Transition of care: patient was not received from another setting of care. 18:05 Acuity: MISSAEL Level 3 ead 18:05 Method Of Arrival: Walkin/Carried/Asstd ead Triage Assessment: 18:07 General: Appears in no apparent distress, comfortable, Behavior is appropriate for age, ead cooperative. Pain: Location: right cheek, mouth and right jaw Pain currently is 4 out of 10 on a pain scale. HIV screening NA for this visit Offered previously. Neurological: No deficits noted. EENT: Reports pain in right cheek and right jaw. Respiratory: Airway is patent Respiratory effort is even, unlabored. Derm: Skin is pink, warm & dry. 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 Percocet 5-325 mg Oral tab every 4-6 hours - PMHx: none; - PSHx: Tubal ligation (June 21, 2013); Neck surgery (2015) Dr. Contreras; Carpal Tunnel Repair- Right; - Social history: Smoking status: Patient uses tobacco products, current some day smoker. No barriers to communication noted, The patient speaks fluent Algerian, Speaks appropriately for age. - Family history: Not pertinent. - : The pt / caregiver states he / she is not on anticoagulants. Home medication list is obtained from the patient. - Exposure Risk Screening:: None identified. Screenin:32 Screening information is obtained from the patient. Fall risk: No risks identified. ka4 Assistance ADL's: requires no assistance with activities of daily living. Abuse/DV Screen: The patient / caregiver reports he/she is: not in a situation that causes fear, pain or injury. Nutritional screening: No deficits noted. Advance Directives: There is no active DNR order. home support is adequate. Assessment: 20:01 Adult Sepsis Screening: The patient does not have new or worsening altered mentation. dsf Patient's respiratory rate is less than 22. Systolic blood pressure is greater than 100. Patient has a qSOFA score of 0- Negative Sepsis Screen. General: Appears in no apparent distress, Behavior is appropriate for age, cooperative. Pain: Location: right jaw and right cheek Pain currently is 5 out of 10 on a pain scale. Quality of pain is described as tender. Neurological: Level of Consciousness is awake, alert. Cardiovascular: Capillary refill < 3 seconds. Respiratory: Airway is patent Respiratory effort is even, unlabored, Respiratory pattern is symmetrical. Derm: Skin is pink, warm & dry. redness and swelling noted to right jaw right cheek and under right eye. pt states the swelling is better. 20:32 General: Appears in no apparent distress, comfortable, Behavior is appropriate for age, ka4 cooperative, pleasant. Pain: Denies pain. Neurological: Level of Consciousness is awake, alert, obeys commands, Oriented to person, place, time, Warp Knitter are equal bilaterally Moves all extremities. Gait is steady, Speech is normal, Facial symmetry: tongue is midline, right side of face swollen, slightly red. Respiratory: Airway is patent Respiratory effort is even, unlabored, Respiratory pattern is regular, symmetrical. Vital Signs: 18:03 BP 127 / 57; Pulse 93; Resp 16; Temp 98(O); Pulse Ox 100% ; Weight 63.5 kg; Height 5 cmb ft. 7 in. (170.18 cm); Pain 4/10; 20:32 BP 113 / 74 LA Sitting (auto/reg); Pulse 84 MON; Resp 16; Temp 100.5(TE); Pulse Ox 98% ka4 on R/A; Pain 0/10; 18:03 Body Mass Index 21.93 (63.50 kg, 170.18 cm) cmb Vitals: 18:03 Log In Time: February 12, 2016 at 18:02. cmb ED Course: 18:03 Patient visited by Mary Beth Liang. cmb 18:03 Jose A Joseph MD is Private Physician. cmb 18:03 NO PRIMARY PHYSICIAN, . is Private Physician. cmb 18:03 Patient moved to Waiting cmb 18:04 Patient moved to Pre RCE cmb 18:06 Triage Initiated ead 19:05 Patient visited by Yuly Jaquez RN. ead 19:05 Patient moved to Triage 2 jmb 19:27 Jayant Joseph PA is PHCP. mo1 19:27 Jase Cole DO is Attending Physician. mo1 19:32 Patient visited by Jayant Joseph PA. mo1 19:44 Patient moved to I2 / M2 ttb 20:04 Patient visited by Conchis Aiken RN. dsf 20:15 [facility] Payment Agreement was scanned into [employer] and attached to record. gjb 20:32 The patient / caregiver is instructed regarding the plan of care and ED course. ka4 20:32 Maintain field IV. Dressing intact. Good blood return noted. Site clean & dry. IV is ka4 patent, is intact, is free of redness or swelling. Flushed left antecubital. No procedures done that require assistance. Administered Medications: 20:01 Drug: Clindamycin 900 mg Route: IVPB; Infused Over: 30 mins; Site: left forearm; dsf Order Results: There are currently no results for this order. Outcome: 20:25 Discharge ordered by Provider. mo1 20:32 Discharge Assessment: Patient awake, alert and oriented x 3. No cognitive and/or ka4 functional deficits noted. Patient verbalized understanding of disposition instructions. patient administered narcotics - no. The following High Risk Discharge criteria are identified: None. Discharged to home ambulatory. Condition: good Condition: stable. Discharge instructions given to patient, Instructed on discharge instructions, follow up and referral plans. Use of warm compresses to the affected area, Demonstrated understanding of instructions, Pt was receptive of discharge instructions/ teaching. No special radiology studies were completed. Property :Personal belongings accompany Pt. 20:35 Patient left the ED. ka4 Signatures: Conchis Aiken RN RN Mary Beth Juarez cmb Charlotte Jackson, RN RN ttb Jayant Joseph PA PA mo1 Ron Stock,RN RN Yuly Hoffman,RN RN Aruna Domingo,SASH FINISHER SASH FINISHER Marjorie Colunga MTDD
--- NOTE | 2016-02-12 20:37 | EDDOCDS ---
Physician Documentation [facility] Name: Amy Magallanes Age: 41 yrs Sex: Female : 1975 Arrival Date: 02/12/2016 Time: 18:02 Bed I2 / M2 Private MD: NO PRIMARY PHYSICIAN, . Disposition: 02/12/16 20:25 Discharged to Home/Self Care. Impression: Cellulitis of face - right cheek. - Condition is Stable. - Discharge Instructions: Cellulitis. - Medication Reconciliation, Local Pharmacy Hours form. - Follow up: Emergency Department; When: Tomorrow; Reason: Recheck today's complaints, Continuance of care. - Problem is new. - Symptoms are unchanged. - Notes: return tomorrow for re evaluation of cellulitis, if you have changes in vision, fever/chills, dramatic change in redness or swelling return to ER sooner Historical: - Allergies: PENICILLINS (Hives, Swelling); - Home Meds: 1. Percocet 5-325 mg Oral tab every 4-6 hours - PMHx: none; - PSHx: Tubal ligation (June 21, 2013); Neck surgery (2015) Dr. Contreras; Carpal Tunnel Repair- Right; - Social history: Smoking status: Patient uses tobacco products, current some day smoker. No barriers to communication noted, The patient speaks fluent Vietnamese, Speaks appropriately for age. - Family history: Not pertinent. - : The pt / caregiver states he / she is not on anticoagulants. Home medication list is obtained from the patient. - Exposure Risk Screening:: None identified. 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 7 in. (170.18 cm); Pain 4/10; 20:32 BP 113 / 74 LA Sitting (auto/reg); Pulse 84 MON; Resp 16; Temp 100.5(TE); Pulse Ox 98% ka4 on R/A; Pain 0/10; 18:03 Body Mass Index 21.93 (63.50 kg, 170.18 cm) cmb MDM: 19:43 Clindamycin 900 mg IVPB once over 30 mins; dilute in 50mL of NS or D5W ordered. mo1 19:51 Financial registration complete. dm19 20:15 [facility] Payment Agreement was scanned into [employer] and attached to record. jeny Administered Medications: 20:01 Drug: Clindamycin 900 mg Route: IVPB; Infused Over: 30 mins; Site: left forearm; dsf Signatures: Jayant Joseph PA PA mo1 Yuly Jaquez RN RN ead Anderson, Kodie, LPN LPN ka4 Beck, Gabriela gjb Sowmya Sheikh dm19 Conchis Aiken RN dsf The chart was reviewed and I authenticate all verbal orders and agree with the evaluation and treatment provided.Attachments: 20:15 [facility] Payment Agreement jeny MTDD
--- NOTE | 2016-02-14 21:36 | EDDOCDS ---
Physician Documentation [facility] Name: Amy Maglalanes Age: 41 yrs Sex: Female : 1975 Arrival Date: 02/12/2016 Time: 18:02 Bed I2 / M2 Private MD: NO PRIMARY PHYSICIAN, . Disposition: 02/12/16 20:25 Discharged to Home/Self Care. Impression: Cellulitis of face - right cheek. - Condition is Stable. - Discharge Instructions: Cellulitis. - Medication Reconciliation, Local Pharmacy Hours form. - Follow up: Emergency Department; When: Tomorrow; Reason: Recheck today's complaints, Continuance of care. - Problem is new. - Symptoms are unchanged. - Notes: return tomorrow for re evaluation of cellulitis, if you have changes in vision, fever/chills, dramatic change in redness or swelling return to ER sooner Historical: - Allergies: PENICILLINS (Hives, Swelling); - Home Meds: 1. Percocet 5-325 mg Oral tab every 4-6 hours - PMHx: none; - PSHx: Tubal ligation (June 21, 2013); Neck surgery (2015) Dr. Contreras; Carpal Tunnel Repair- Right; - Social history: Smoking status: Patient uses tobacco products, current some day smoker. No barriers to communication noted, The patient speaks fluent Qatari, Speaks appropriately for age. - Family history: Not pertinent. - : The pt / caregiver states he / she is not on anticoagulants. Home medication list is obtained from the patient. - Exposure Risk Screening:: None identified. 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 7 in. (170.18 cm); Pain 4/10; 20:32 BP 113 / 74 LA Sitting (auto/reg); Pulse 84 MON; Resp 16; Temp 100.5(TE); Pulse Ox 98% ka4 on R/A; Pain 0/10; 18:03 Body Mass Index 21.93 (63.50 kg, 170.18 cm) cmb MDM: 19:43 Clindamycin 900 mg IVPB once over 30 mins; dilute in 50mL of NS or D5W ordered. mo1 19:51 Financial registration complete. dm19 20:15 [facility] Payment Agreement was scanned into T[employer] and attached to record. jeny 02/13 08:22 T-Sheet-- Draft Copy was scanned into TixAlert and attached to record. gb Administered Medications: 02/11 20:01 Drug: Clindamycin 900 mg Route: IVPB; Infused Over: 30 mins; Site: left forearm; dsf Signatures: Nora Barone, Reg Reg gb Jayant Joseph PA PA mo1 Yuly Jaquez,RN RN Aruna Domingo LPN LPN ka4 Marjorie Prieto gjb Sowmya Sheikh dm19 Conchis Aiken RN dsf The chart was reviewed and I authenticate all verbal orders and agree with the evaluation and treatment provided.Attachments: 20:15 [facility] Payment Agreement b 02/13 08:22 T-Sheet-- Draft Copy gb Chart Complete MTDD
--- NOTE | 2016-02-14 21:36 | EDDOCDS ---
Physician Documentation [facility] Name: Amy Magallanes Age: 41 yrs Sex: Female : 1975 Arrival Date: 02/12/2016 Time: 18:02 Bed I2 / M2 Private MD: NO PRIMARY PHYSICIAN, . Disposition: 02/12/16 20:25 Discharged to Home/Self Care. Impression: Cellulitis of face - right cheek. - Condition is Stable. - Discharge Instructions: Cellulitis. - Medication Reconciliation, Local Pharmacy Hours form. - Follow up: Emergency Department; When: Tomorrow; Reason: Recheck today's complaints, Continuance of care. - Problem is new. - Symptoms are unchanged. - Notes: return tomorrow for re evaluation of cellulitis, if you have changes in vision, fever/chills, dramatic change in redness or swelling return to ER sooner Historical: - Allergies: PENICILLINS (Hives, Swelling); - Home Meds: 1. Percocet 5-325 mg Oral tab every 4-6 hours - PMHx: none; - PSHx: Tubal ligation (June 21, 2013); Neck surgery (2015) Dr. Contreras; Carpal Tunnel Repair- Right; - Social history: Smoking status: Patient uses tobacco products, current some day smoker. No barriers to communication noted, The patient speaks fluent Ghanaian, Speaks appropriately for age. - Family history: Not pertinent. - : The pt / caregiver states he / she is not on anticoagulants. Home medication list is obtained from the patient. - Exposure Risk Screening:: None identified. 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 7 in. (170.18 cm); Pain 4/10; 20:32 BP 113 / 74 LA Sitting (auto/reg); Pulse 84 MON; Resp 16; Temp 100.5(TE); Pulse Ox 98% ka4 on R/A; Pain 0/10; 18:03 Body Mass Index 21.93 (63.50 kg, 170.18 cm) cmb MDM: 19:43 Clindamycin 900 mg IVPB once over 30 mins; dilute in 50mL of NS or D5W ordered. mo1 19:51 Financial registration complete. dm19 20:15 [facility] Payment Agreement was scanned into [employer] and attached to record. jeny 02/13 08:22 T-Sheet-- Draft Copy was scanned into [employer] and attached to record. gb Administered Medications: 02/11 20:01 Drug: Clindamycin 900 mg Route: IVPB; Infused Over: 30 mins; Site: left forearm; dsf Signatures: Nora Barone, Reg Reg gb Jayant Joseph PA PA mo1 Yuly Jaquez,RN RN Aruna Domingo LPN LPN ka4 Marjorie Prieto gjb Sowmya Sheikh dm19 Conchis Aiken RN dsf The chart was reviewed and I authenticate all verbal orders and agree with the evaluation and treatment provided.Attachments: 20:15 [facility] Payment Agreement b 02/13 08:22 T-Sheet-- Draft Copy gb Chart Complete MTDD
--- NOTE | 2016-02-14 21:36 | EDDOCDS ---
Nurse's Notes [facility] Name: Amy Magallanes Age: 41 yrs Sex: Female : 1975 Arrival Date: 02/12/2016 Time: 18:02 Bed I2 / M2 Private MD: NO PRIMARY PHYSICIAN, . Diagnosis: Cellulitis of face-right cheek Presentation: 02/11 18:05 Presenting complaint: Patient states: here for recheck with IV antibiotics. states was ead seen here this morning for right side facial swelling and given IV antibiotics. Was instructed to come back this afternoon. Adult Sepsis Screening: The patient does not have new or worsening altered mentation. Patient's respiratory rate is less than 22. Systolic blood pressure is greater than 100. Patient has a qSOFA score of 0- Negative Sepsis Screen. Suicide/Homicide risk assessment- the patient denies having any suicidal and/or homicidal ideations and does not present with any other emotional, behavioral or mental health complaints. Status: Patient is not a substance abuse services director or dependent. Transition of care: patient was not received from another setting of care. 18:05 Acuity: MISSAEL Level 3 ead 18:05 Method Of Arrival: Walkin/Carried/Asstd ead Triage Assessment: 18:07 General: Appears in no apparent distress, comfortable, Behavior is appropriate for age, ead cooperative. Pain: Location: right cheek, mouth and right jaw Pain currently is 4 out of 10 on a pain scale. HIV screening NA for this visit Offered previously. Neurological: No deficits noted. EENT: Reports pain in right cheek and right jaw. Respiratory: Airway is patent Respiratory effort is even, unlabored. Derm: Skin is pink, warm & dry. 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 Percocet 5-325 mg Oral tab every 4-6 hours - PMHx: none; - PSHx: Tubal ligation (June 21, 2013); Neck surgery (2015) Dr. Contreras; Carpal Tunnel Repair- Right; - Social history: Smoking status: Patient uses tobacco products, current some day smoker. No barriers to communication noted, The patient speaks fluent Haitian, Speaks appropriately for age. - Family history: Not pertinent. - : The pt / caregiver states he / she is not on anticoagulants. Home medication list is obtained from the patient. - Exposure Risk Screening:: None identified. Screenin:32 Screening information is obtained from the patient. Fall risk: No risks identified. ka4 Assistance ADL's: requires no assistance with activities of daily living. Abuse/DV Screen: The patient / caregiver reports he/she is: not in a situation that causes fear, pain or injury. Nutritional screening: No deficits noted. Advance Directives: There is no active DNR order. home support is adequate. Assessment: 20:01 Adult Sepsis Screening: The patient does not have new or worsening altered mentation. dsf Patient's respiratory rate is less than 22. Systolic blood pressure is greater than 100. Patient has a qSOFA score of 0- Negative Sepsis Screen. General: Appears in no apparent distress, Behavior is appropriate for age, cooperative. Pain: Location: right jaw and right cheek Pain currently is 5 out of 10 on a pain scale. Quality of pain is described as tender. Neurological: Level of Consciousness is awake, alert. Cardiovascular: Capillary refill < 3 seconds. Respiratory: Airway is patent Respiratory effort is even, unlabored, Respiratory pattern is symmetrical. Derm: Skin is pink, warm & dry. redness and swelling noted to right jaw right cheek and under right eye. pt states the swelling is better. 20:32 General: Appears in no apparent distress, comfortable, Behavior is appropriate for age, ka4 cooperative, pleasant. Pain: Denies pain. Neurological: Level of Consciousness is awake, alert, obeys commands, Oriented to person, place, time, Medical Research Tech are equal bilaterally Moves all extremities. Gait is steady, Speech is normal, Facial symmetry: tongue is midline, right side of face swollen, slightly red. Respiratory: Airway is patent Respiratory effort is even, unlabored, Respiratory pattern is regular, symmetrical. Vital Signs: 18:03 BP 127 / 57; Pulse 93; Resp 16; Temp 98(O); Pulse Ox 100% ; Weight 63.5 kg; Height 5 cmb ft. 7 in. (170.18 cm); Pain 4/10; 20:32 BP 113 / 74 LA Sitting (auto/reg); Pulse 84 MON; Resp 16; Temp 100.5(TE); Pulse Ox 98% ka4 on R/A; Pain 0/10; 18:03 Body Mass Index 21.93 (63.50 kg, 170.18 cm) cmb Vitals: 18:03 Log In Time: February 12, 2016 at 18:02. cmb ED Course: 18:03 Patient visited by Mary Beth Liang. cmb 18:03 Jose A Joseph MD is Private Physician. cmb 18:03 NO PRIMARY PHYSICIAN, . is Private Physician. cmb 18:03 Patient moved to Waiting cmb 18:04 Patient moved to Pre RCE cmb 18:06 Triage Initiated ead 19:05 Patient visited by Yuly Jaquez RN. ead 19:05 Patient moved to Triage 2 jmb 19:27 Jayant Joseph PA is PHCP. mo1 19:27 Jase Cole DO is Attending Physician. mo1 19:32 Patient visited by Jayant Joseph PA. mo1 19:44 Patient moved to I2 / M2 ttb 20:04 Patient visited by Conchis Aiken RN. dsf 20:15 [facility] Payment Agreement was scanned into [employer] and attached to record. gjb 20:32 The patient / caregiver is instructed regarding the plan of care and ED course. ka4 20:32 Maintain field IV. Dressing intact. Good blood return noted. Site clean & dry. IV is ka4 patent, is intact, is free of redness or swelling. Flushed left antecubital. No procedures done that require assistance. 02/13 08:22 T-Sheet-- Draft Copy was scanned into [employer] and attached to record. gb Administered Medications: 02/11 20:01 Drug: Clindamycin 900 mg Route: IVPB; Infused Over: 30 mins; Site: left forearm; dsf Order Results: There are currently no results for this order. Outcome: 20:25 Discharge ordered by Provider. mo1 20:32 Discharge Assessment: Patient awake, alert and oriented x 3. No cognitive and/or ka4 functional deficits noted. Patient verbalized understanding of disposition instructions. patient administered narcotics - no. The following High Risk Discharge criteria are identified: None. Discharged to home ambulatory. Condition: good Condition: stable. Discharge instructions given to patient, Instructed on discharge instructions, follow up and referral plans. Use of warm compresses to the affected area, Demonstrated understanding of instructions, Pt was receptive of discharge instructions/ teaching. No special radiology studies were completed. Property :Personal belongings accompany Pt. 20:35 Patient left the ED. ka4 Signatures: Nora Barone, Reg Reg Conchis Small,RN RN Mary Beth Juarez Teresa RN RN ttb Jayant Joseph PA PA mo1 Ron StockRN RN Yuly HoffmanRN RN Aruna Domingo LPN LPN ka4 Marjorie Prieto Chart Complete MTDD
== END 2016-02-12 20:35 | disposition home or self-care (01) ==
LOC: M ED 18:02
DX: L03.211 Cellulitis of face (principal); Z88.0 Allergy status to penicillin; F17.210 Nicotine dependence, cigarettes, uncomplicated

== ENCOUNTER 2016-02-13 08:17 | Emergency (ER) | payer SELFPAY ==
[2016-02-13] MEDS ORDERED: CLINDAMYCIN 600 MG/50 ML PREMIX BAG As Ordered ONE (08:37)
--- NOTE | 2016-02-13 09:25 | EDDOCDS ---
Physician Documentation [facility] Name: Amy Magallanes Age: 41 yrs Sex: Female : 1975 Arrival Date: 02/13/2016 Time: 08:17 Bed PD Private MD: Disposition: 02/13/16 09:18 Discharged to Home/Self Care. Impression: Cellulitis and abscess of mouth. - Condition is Stable. - Discharge Instructions: Dental Abscess. - Prescriptions for Clindamycin HCl 300 mg Oral Capsule - take 1 capsule by ORAL route every 6 hours; 40 capsule. etodolac 200 mg Oral Capsule - take 1 capsule by ORAL route 3 times per day; 30 capsule. - Medication Reconciliation, Local Pharmacy Hours form. - Follow up: Your, Dentist; When: Call to arrange an appointment; Reason: Further diagnostic work-up, Recheck today's complaints, Continuance of care. Follow up: Emergency Department; When: As soon as possible; Reason: Worsening of conditions. - Problem is new. - Symptoms have improved. Historical: - Allergies: PENICILLINS (Hives, Swelling); - Home Meds: 1. Percocet 5-325 mg Oral tab every 4-6 hours - PMHx: none; - PSHx: neck surgery; Tubal ligation; wrist surgery; - Social history: Smoking status: Patient uses tobacco products, current some day smoker. No barriers to communication noted, The patient speaks fluent Cymraes, Speaks appropriately for age. - Family history: Not pertinent. - : The pt / caregiver states he / she is not on anticoagulants. Home medication list is obtained from the patient. - Exposure Risk Screening:: None identified. 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 7 in. (170.18 cm) (R); 08:21 Body Mass Index 21.93 (63.50 kg, 170.18 cm) kr3 MDM: 08:34 Clindamycin 600 mg IVPB once over 30 mins; dilute in 50mL of NS or D5W ordered. btw 08:45 [facility] Payment Agreement was scanned into Robert Applebaum MD and attached to record. pm4 08:45 Financial registration complete. pm4 Administered Medications: 08:41 Drug: Clindamycin 600 mg [clindamycin 600 mg/50 mL in 5 % dextrose intravenous kr3 piggyback] Route: IVPB; Infused Over: 30 mins; Site: left forearm; 09:07 Follow up: IV Status: Completed infusion kr3 Signatures: Marivel Garcia RN RN kr3 Fly Cartwright PA PA btw Adan Matos, Reg Reg pm4 The chart was reviewed and I authenticate all verbal orders and agree with the evaluation and treatment provided.Attachments: 08:45 [facility] Payment Agreement pm4 MTDD
--- NOTE | 2016-02-13 09:25 | EDDOCDS ---
Nurse's Notes [facility] Name: Amy Magallanes Age: 41 yrs Sex: Female : 1975 Arrival Date: 02/13/2016 Time: 08:17 Bed PD Private MD: Diagnosis: Cellulitis and abscess of mouth Presentation: 02/12 08:20 Presenting complaint: Patient states: for reevaluation of right sided dental abscess. kr3 Reports feeling much better. Adult Sepsis Screening: The patient does not have new or worsening altered mentation. Patient's respiratory rate is less than 22. Systolic blood pressure is greater than 100. Patient has a qSOFA score of 0- Negative Sepsis Screen. Suicide/Homicide risk assessment- the patient denies having any suicidal and/or homicidal ideations and does not present with any other emotional, behavioral or mental health complaints. Status: Patient is not a volunteer services assistant or dependent. Transition of care: patient was not received from another setting of care. 08:20 Acuity: MISSAEL Level 4 kr3 08:20 Method Of Arrival: Walkin/Carried/Asstd kr3 Triage Assessment: 08:21 General: Appears in no apparent distress, comfortable, Behavior is appropriate for age, kr3 cooperative. Pain: Location: right cheek Pain currently is 1 out of 10 on a pain scale. HIV screening NA for this visit Offered previously. Neurological: No deficits noted. Respiratory: Respiratory effort is even, unlabored. Derm: Skin is normal. 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 Percocet 5-325 mg Oral tab every 4-6 hours - PMHx: none; - PSHx: neck surgery; Tubal ligation; wrist surgery; - Social history: Smoking status: Patient uses tobacco products, current some day smoker. No barriers to communication noted, The patient speaks fluent Maltese, Speaks appropriately for age. - Family history: Not pertinent. - : The pt / caregiver states he / she is not on anticoagulants. Home medication list is obtained from the patient. - Exposure Risk Screening:: None identified. Screenin:07 Screening information is obtained from the patient. Fall risk: No risks identified. kr3 Assistance ADL's: requires no assistance with activities of daily living. Abuse/DV Screen: The patient / caregiver reports he/she is: not in a situation that causes fear, pain or injury. Nutritional screening: No deficits noted. Advance Directives: Currently, there is no health care proxy. home support is adequate. Assessment: 09:08 Reassessment: Patient appears in no apparent distress at this time. Neurological: No kr3 deficits noted. Respiratory: Respiratory effort is even, unlabored. Derm: Skin is pink, warm & dry. Vital Signs: 08:21 BP 101 / 61; Pulse 77; Resp 16; Temp 97.8(O); Pulse Ox 99% on R/A; Weight 63.5 kg (R); kr3 Height 5 ft. 7 in. (170.18 cm) (R); 08:21 Body Mass Index 21.93 (63.50 kg, 170.18 cm) kr3 Vitals: 08:21 Log In Time: February 13, 2016 at 08:17. kr3 ED Course: 08:19 Patient visited by Adan Matos Reg. pm4 08:19 Patient moved to Waiting pm4 08:20 Triage Initiated kr3 08:23 Patient moved to Triage 1 kr3 08:25 Fly Cartwright PA is PHCP. btw 08:25 Lisy Gates MD is Attending Physician. btw 08:25 Patient visited by Fly Cartwright PA. btw 08:36 Patient moved to PD2 / 27 kr3 08:45 [facility] Payment Agreement was scanned into [employer] and attached to record. pm4 09:07 Patient visited by Marivel Garcia RN. kr3 09:07 Discontinued lock intact, bleeding controlled, pressure dressing applied, No kr3 redness/swelling at site. No procedures done that require assistance. 09:08 The patient / caregiver is instructed regarding the plan of care and ED course. Patient kr3 has correct armband on for positive identification. 09:18 Your, Dentist is Referral Physician. btw Administered Medications: 08:41 Drug: Clindamycin 600 mg [clindamycin 600 mg/50 mL in 5 % dextrose intravenous kr3 piggyback] Route: IVPB; Infused Over: 30 mins; Site: left forearm; 09:07 Follow up: IV Status: Completed infusion kr3 Order Results: There are currently no results for this order. Outcome: 09:07 No special radiology studies were completed. kr3 09:08 Discharge Assessment: patient administered narcotics - no. kr3 09:18 Discharge ordered by Provider. btw 09:23 The following High Risk Discharge criteria are identified: None. Discharged to home kr3 ambulatory. Condition: stable. Discharge instructions given to patient, Instructed on discharge instructions, follow up and referral plans. medication usage, Demonstrated understanding of instructions, medications, Pt was receptive of discharge instructions/ teaching. Prescriptions given X 2. Property sent home with patient. 09:24 Patient left the ED. kr3 Signatures: Marivel Garcia,RN RN kr3 Fly Cartwright PA PA btw Adan Matos, Reg Reg pm4 MTDD
--- NOTE | 2016-02-15 10:24 | EDDOCDS ---
Nurse's Notes [facility] Name: Amy Magallanes Age: 41 yrs Sex: Female : 1975 Arrival Date: 02/13/2016 Time: 08:17 Bed PD Private MD: Diagnosis: Cellulitis and abscess of mouth Presentation: 02/12 08:20 Presenting complaint: Patient states: for reevaluation of right sided dental abscess. kr3 Reports feeling much better. Adult Sepsis Screening: The patient does not have new or worsening altered mentation. Patient's respiratory rate is less than 22. Systolic blood pressure is greater than 100. Patient has a qSOFA score of 0- Negative Sepsis Screen. Suicide/Homicide risk assessment- the patient denies having any suicidal and/or homicidal ideations and does not present with any other emotional, behavioral or mental health complaints. Status: Patient is not a dietary services manager or dependent. Transition of care: patient was not received from another setting of care. 08:20 Acuity: MISSAEL Level 4 kr3 08:20 Method Of Arrival: Walkin/Carried/Asstd kr3 Triage Assessment: 08:21 General: Appears in no apparent distress, comfortable, Behavior is appropriate for age, kr3 cooperative. Pain: Location: right cheek Pain currently is 1 out of 10 on a pain scale. HIV screening NA for this visit Offered previously. Neurological: No deficits noted. Respiratory: Respiratory effort is even, unlabored. Derm: Skin is normal. 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 Percocet 5-325 mg Oral tab every 4-6 hours - PMHx: none; - PSHx: neck surgery; Tubal ligation; wrist surgery; - Social history: Smoking status: Patient uses tobacco products, current some day smoker. No barriers to communication noted, The patient speaks fluent Latvian, Speaks appropriately for age. - Family history: Not pertinent. - : The pt / caregiver states he / she is not on anticoagulants. Home medication list is obtained from the patient. - Exposure Risk Screening:: None identified. Screenin:07 Screening information is obtained from the patient. Fall risk: No risks identified. kr3 Assistance ADL's: requires no assistance with activities of daily living. Abuse/DV Screen: The patient / caregiver reports he/she is: not in a situation that causes fear, pain or injury. Nutritional screening: No deficits noted. Advance Directives: Currently, there is no health care proxy. home support is adequate. Assessment: 09:08 Reassessment: Patient appears in no apparent distress at this time. Neurological: No kr3 deficits noted. Respiratory: Respiratory effort is even, unlabored. Derm: Skin is pink, warm & dry. Vital Signs: 08:21 BP 101 / 61; Pulse 77; Resp 16; Temp 97.8(O); Pulse Ox 99% on R/A; Weight 63.5 kg (R); kr3 Height 5 ft. 7 in. (170.18 cm) (R); 08:21 Body Mass Index 21.93 (63.50 kg, 170.18 cm) kr3 Vitals: 08:21 Log In Time: February 13, 2016 at 08:17. kr3 ED Course: 08:19 Patient visited by Adan Matos Reg. pm4 08:19 Patient moved to Waiting pm4 08:20 Triage Initiated kr3 08:23 Patient moved to Triage 1 kr3 08:25 Fly Cartwright PA is PHCP. btw 08:25 Lisy Gates MD is Attending Physician. btw 08:25 Patient visited by Fly Cartwright PA. btw 08:36 Patient moved to PD2 / 27 kr3 08:45 [facility] Payment Agreement was scanned into [employer] and attached to record. pm4 09:07 Patient visited by Marivel Garcia RN. kr3 09:07 Discontinued lock intact, bleeding controlled, pressure dressing applied, No kr3 redness/swelling at site. No procedures done that require assistance. 09:08 The patient / caregiver is instructed regarding the plan of care and ED course. Patient kr3 has correct armband on for positive identification. 09:18 Your, Dentist is Referral Physician. btw 02/13 07:04 T-Sheet-- Draft Copy was scanned into [employer] and attached to record. gb Administered Medications: 02/12 08:41 Drug: Clindamycin 600 mg [clindamycin 600 mg/50 mL in 5 % dextrose intravenous kr3 piggyback] Route: IVPB; Infused Over: 30 mins; Site: left forearm; 09:07 Follow up: IV Status: Completed infusion kr3 Order Results: There are currently no results for this order. Outcome: 09:07 No special radiology studies were completed. kr3 09:08 Discharge Assessment: patient administered narcotics - no. kr3 09:18 Discharge ordered by Provider. btw 09:23 The following High Risk Discharge criteria are identified: None. Discharged to home kr3 ambulatory. Condition: stable. Discharge instructions given to patient, Instructed on discharge instructions, follow up and referral plans. medication usage, Demonstrated understanding of instructions, medications, Pt was receptive of discharge instructions/ teaching. Prescriptions given X 2. Property sent home with patient. 09:24 Patient left the ED. kr3 Signatures: Nora Barone, Reg Reg gb Marivel Garcia RN RN kr3 Fly Cartwright PA PA btw Adan Matos, Reg Reg pm4 Chart Complete MTDD
--- NOTE | 2016-02-15 10:24 | EDDOCDS ---
Physician Documentation [facility] Name: Amy Magallanes Age: 41 yrs Sex: Female : 1975 Arrival Date: 02/13/2016 Time: 08:17 Bed PD Private MD: Disposition: 02/13/16 09:18 Discharged to Home/Self Care. Impression: Cellulitis and abscess of mouth. - Condition is Stable. - Discharge Instructions: Dental Abscess. - Prescriptions for Clindamycin HCl 300 mg Oral Capsule - take 1 capsule by ORAL route every 6 hours; 40 capsule. etodolac 200 mg Oral Capsule - take 1 capsule by ORAL route 3 times per day; 30 capsule. - Medication Reconciliation, Local Pharmacy Hours form. - Follow up: Your, Dentist; When: Call to arrange an appointment; Reason: Further diagnostic work-up, Recheck today's complaints, Continuance of care. Follow up: Emergency Department; When: As soon as possible; Reason: Worsening of conditions. - Problem is new. - Symptoms have improved. Historical: - Allergies: PENICILLINS (Hives, Swelling); - Home Meds: 1. Percocet 5-325 mg Oral tab every 4-6 hours - PMHx: none; - PSHx: neck surgery; Tubal ligation; wrist surgery; - Social history: Smoking status: Patient uses tobacco products, current some day smoker. No barriers to communication noted, The patient speaks fluent Armenian, Speaks appropriately for age. - Family history: Not pertinent. - : The pt / caregiver states he / she is not on anticoagulants. Home medication list is obtained from the patient. - Exposure Risk Screening:: None identified. 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 7 in. (170.18 cm) (R); 08:21 Body Mass Index 21.93 (63.50 kg, 170.18 cm) kr3 MDM: 08:34 Clindamycin 600 mg IVPB once over 30 mins; dilute in 50mL of NS or D5W ordered. btw 08:45 [facility] Payment Agreement was scanned into [employer] and attached to record. pm4 08:45 Financial registration complete. pm4 02/13 07:04 T-Sheet-- Draft Copy was scanned into [employer] and attached to record. gb Administered Medications: 02/12 08:41 Drug: Clindamycin 600 mg [clindamycin 600 mg/50 mL in 5 % dextrose intravenous kr3 piggyback] Route: IVPB; Infused Over: 30 mins; Site: left forearm; 09:07 Follow up: IV Status: Completed infusion kr3 Signatures: Nora Barone, Reg Reg gb Marivel GarciaRN RN kr3 Fly Cartwright PA PA btw Adan Matos, Reg Reg pm4 The chart was reviewed and I authenticate all verbal orders and agree with the evaluation and treatment provided.Attachments: 08:45 [facility] Payment Agreement pm4 02/13 07:04 T-Sheet-- Draft Copy gb Chart Complete MTDD
--- NOTE | 2016-02-15 10:24 | EDDOCDS ---
Physician Documentation [facility] Name: Amy Magallanes Age: 41 yrs Sex: Female : 1975 Arrival Date: 02/13/2016 Time: 08:17 Bed PD Private MD: Disposition: 02/13/16 09:18 Discharged to Home/Self Care. Impression: Cellulitis and abscess of mouth. - Condition is Stable. - Discharge Instructions: Dental Abscess. - Prescriptions for Clindamycin HCl 300 mg Oral Capsule - take 1 capsule by ORAL route every 6 hours; 40 capsule. etodolac 200 mg Oral Capsule - take 1 capsule by ORAL route 3 times per day; 30 capsule. - Medication Reconciliation, Local Pharmacy Hours form. - Follow up: Your, Dentist; When: Call to arrange an appointment; Reason: Further diagnostic work-up, Recheck today's complaints, Continuance of care. Follow up: Emergency Department; When: As soon as possible; Reason: Worsening of conditions. - Problem is new. - Symptoms have improved. Historical: - Allergies: PENICILLINS (Hives, Swelling); - Home Meds: 1. Percocet 5-325 mg Oral tab every 4-6 hours - PMHx: none; - PSHx: neck surgery; Tubal ligation; wrist surgery; - Social history: Smoking status: Patient uses tobacco products, current some day smoker. No barriers to communication noted, The patient speaks fluent Georgian, Speaks appropriately for age. - Family history: Not pertinent. - : The pt / caregiver states he / she is not on anticoagulants. Home medication list is obtained from the patient. - Exposure Risk Screening:: None identified. 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 7 in. (170.18 cm) (R); 08:21 Body Mass Index 21.93 (63.50 kg, 170.18 cm) kr3 MDM: 08:34 Clindamycin 600 mg IVPB once over 30 mins; dilute in 50mL of NS or D5W ordered. btw 08:45 [facility] Payment Agreement was scanned into [employer] and attached to record. pm4 08:45 Financial registration complete. pm4 02/13 07:04 T-Sheet-- Draft Copy was scanned into [employer] and attached to record. gb Administered Medications: 02/12 08:41 Drug: Clindamycin 600 mg [clindamycin 600 mg/50 mL in 5 % dextrose intravenous kr3 piggyback] Route: IVPB; Infused Over: 30 mins; Site: left forearm; 09:07 Follow up: IV Status: Completed infusion kr3 Signatures: Nora Barone, Reg Reg gb Marivel GarciaRN RN kr3 Fly Cartwright PA PA btw Adan Matos, Reg Reg pm4 The chart was reviewed and I authenticate all verbal orders and agree with the evaluation and treatment provided.Attachments: 08:45 [facility] Payment Agreement pm4 02/13 07:04 T-Sheet-- Draft Copy gb Chart Complete MTDD
== END 2016-02-13 09:24 | disposition home or self-care (01) ==
LOC: M ED 08:17
DX: K04.7 Periapical abscess without sinus (principal); G50.1 Atypical facial pain; Z72.0 Tobacco use; Z88.0 Allergy status to penicillin

== ENCOUNTER 2019-07-03 03:16 | Emergency (ER) | payer SELFPAY ==
[~2019-07-03] VITALS: Ht 167.6 cm; Wt 63.6 kg
[~2019-07-03 03:16] MED LIST changes: +GABA-843 PO; -GABA300C3 PO; +PERC5TAB12 PO; -PERC5TAB6 PO
[2019-07-03] MEDS ORDERED: CLINDAMYCIN 150MG CAPSULE PO ONE (04:00)
[2019-07-03] MEDS ORDERED: CLIN150C14 PO (04:03)
[2019-07-03] MEDS ORDERED: KETO10TAB PO (04:03)
[2019-07-03] MEDS ORDERED: KETOROLAC 60MG 2ML VIAL IM ONE (04:30)
[2019-07-03] MEDS ORDERED: NORC1TAB7 PO (05:47)
[2019-07-03 05:56] VITALS: BP 109/64
== END 2019-07-03 06:01 | disposition home or self-care (01) ==
LOC: M ED 03:16
DX: K08.9 Disorder of teeth and supporting structures, unspecified (principal); Z88.0 Allergy status to penicillin; Z88.8 Allergy status to other drugs, medicaments and biological substances; Z91.040 Latex allergy status
CPT/HCPCS: 80047; 96372; 99283; J1885